=== PATIENT | female | born 1965 | race Caucasian/White ===

== ENCOUNTER 2016-12-05 18:47 | Emergency (ER) | payer MEDICARE | END 2016-12-05 23:17 | disposition home or self-care (01) | LOC: ER 18:47 | DX: L23.9 Allergic contact dermatitis, unspecified cause (principal); Z98.51 Tubal ligation status; F17.210 Nicotine dependence, cigarettes, uncomplicated; Z79.899 Other long term (current) drug therapy | CPT/HCPCS: 96372; 99282-25 ==